=== PATIENT | female | born 1970 | race Caucasian/White ===

== ENCOUNTER → 2016-06-06 | Day surgery (SDC) | payer BC ==
[2016-06-06] VITALS (13 sets, daily range): BP systolic 126–160; BP diastolic 77–90
[~2016-06-06] VITALS: Ht 165.1 cm; Wt 57.6 kg
[~2016-06-06] MED LIST: Dexamethasone 4mg/ml vial ONE; Hydromorphone 0.5mg/0.5ml inj IVP PRN; Ketorolac 30mg Inj IV PRN; Meperidine 25mg/ml Inj ONE; Meperidine 50mg/ml Inj IVP ONE; NKM; NS Irrig 1000ml IRRIG ONE; Norco 5mg/325mg tab ORAL PRN; ProvayBlue 5mg/ml 10ml amp INJ ONE; Ropivacaine 5mg/ml Vial 20ml INJ ONE; Sterile Water Irrig 1000ml IRRIG ONE; Zemuron 50mg/5ml Inj IV ONE; cefOXitin 2gm Inj ONE; cefOXitin Sod 2 GM in D5W 110 ML IVPB ONE; fentaNYL 100 mcg/2 mL IV PRN
--- NOTE | 2016-06-06 07:58 | Pre-Procedure Note/Attestation ---
Pre-Procedure Note/Attestation Complete Prior to Procedure Planned Procedure: left Procedure Narrative: Video Pelviscopy, left pelvic cystic mass evaluation and removal, possible left salpingectomy, hysteroscopy D&C Indications for Procedure Pre-Operative Diagnosis: Left adnexal mass Attestation I attest that I discussed the nature of the procedure; its benefits; risks and complications; and alternatives (and the risks and benefits of such alternatives ), prior to the procedure, with the patient (or the patient's legal sales training representative). I attest that, if there was a reasonable possibility of needing a blood transfusion, the patient (or the patient's legal sales training representative) was given the [place] [employer] [facility] [employer] [facility] standardized written summary, pursuant to the [employer] Blood Safety Act ([place] Health and Safety Code # 1645, as amended). I attest that I re-evaluated the patient just prior to the surgery and that there has been no change in the patient's H&P, except as documented below:NONE REYMUNDO LOPEZ Jun 06, 2016 07:58
--- NOTE | 2016-06-06 09:01 | Anethesia Preoperative Eval ---
Anesthesia Pre-op PMH/ROS General Date of Evaluation: Jun 06, 2016 Time of Evaluation: 07:25 Anesthesiologist: Mony ASA Score: ASA 1 Mallampati Score Class I : Soft palate, uvula, fauces, pillars visible Class II: Soft palate, uvula, fauces visible Class III: Soft palate, base of uvula visible Class IV: Only hard plate visible Mallampati Classification: Class I Surgeon: Kaci Diagnosis: Ovarian Cyst Surgical Procedure: Laparascopy removal ovarian cyst Anesthesia History: none Family History: no anesthesia problems Allergies: Coded Allergies: Dairy (Verified Allergy, Intermediate, inflamatiom, 06/05/16) Medications: see eMAR Past Medical History Cardiovascular: Denies: CAD, HTN, [place], arrhythmia, other, valve dz Pulmonary: Denies: COPD, SALLY, asthma, other Gastrointestinal/Genitourinary: Denies: CRI, ESRD, GERD, other Neurologic/Psychiatric: Denies: CVA, TIA, dementia, depression/anxiety, other Endocrine: Denies: DM, hypothyroidism, other, steroids Hematology/Immune: Denies: DVT, anemia, bleeding disorder, other Musculoskeletal/Integumentary: Denies: DDD, DJD, OA, RA, edema, other Anesthesia Pre-op Phys. Exam Physician Exam Last Vital Signs Date Time Temp Pulse Resp B/P Pulse Ox O2 Delivery O2 Flow Rate FiO2 06/06/16 06:56 98.2 54 20 138/82 99 Room Air Constitutional: NAD Neurologic: CN 2-12 intact Cardiovascular: RRR Respiratory: CTA Gastrointestinal: S/NT/ND Airway Exam Mallampati Score: Class I Anesthesia Pre-op A/P Labs Urine Test Test 06/06/16 06:30 Urine HCG, Qualitative Negative FILEMON DELGADO M.D. Jun 06, 2016 09:01
--- NOTE | 2016-06-06 09:22 | Brief Operative Note ---
Immediate Post Operative Note Operative Note Pre-op Diagnosis: Left adnexal mass Procedure: D&C, Hysteroscopy, Pelviscopy with Left Salpingectomy, with enterolysis Post-op Diagnosis: Left tubal mass, Right bowel adhesions Post-op Diagnosis: same as pre-op plus - RIght bowel adhesions Surgeon: Reymundo Lopez MD Geographic Area Intelligence Officer: Rema Nina MD Anesthesiologist: Ghassan Gray MD Anesthesia: general Specimen: yes - ECC, EMC, Left Tube Complications: none Condition: stable Fluids: IV - Normal Saline Estimated Blood Loss: minimal Drains: none Implant(s) used?: No REYMUNDO LOPEZ Jun 06, 2016 09:22
--- NOTE | 2016-06-06 09:24 | Immediate Post-Op Evaluation ---
Immediate Post-Op Evalulation Immediate Post-Op Evalulation Procedure: Ovarian Custectomy Date of Evaluation: Jun 06, 2016 Time of Evaluation: 09:23 IV Fluids: 800 Blood Products: 0 Estimated Blood Loss: 0 Urinary Output: 0 Blood Pressure Systolic: 120 Blood Pressure Diastolic: 70 Pulse Rate: 80 Respiratory Rate: 20 O2 Sat by Pulse Oximetry: 99 Temperature (Fahrenheit): 9 8 Pain Score (1-10): 2 Nausea: No Vomiting: No Complications na Patient Status: awake Hydration Status: adequate Drug: Cefoxitin 2 G Given Within 1 Hr of Incision: Yes Time Given: 07:45 FILEMON DELGADO M.D. Jun 06, 2016 09:24
--- NOTE | 2016-06-06 09:25 | 48 Hour Post Anesthesia Eval ---
Post Anesthesia Evaluation Procedure: Ovarian Custectomy Date of Evaluation: Jun 06, 2016 Time of Evaluation: 09:25 Blood Pressure Systolic: 123 0: 70 Pulse Rate: 70 Respiratory Rate: 20 Temperature (Fahrenheit): 98 O2 Sat by Pulse Oximetry: 99 Airway: patent Nausea: No Vomiting: No Pain Intensity: 2 Hydration Status: adequate Cardiopulmonary Status: stable Mental Status/LOC: patient returned to baseline Follow-up Care/Observations: na Post-Anesthesia Complications: na Follow-up care needed: N/A FILEMON DELGADO M.D. Jun 06, 2016 09:25
--- NOTE | 2016-06-06 15:38 | Operative Note - Dictated ---
DATE OF OPERATION: 06/06/2016 PREOPERATIVE DIAGNOSIS: Left pelvic mass. POSTOPERATIVE DIAGNOSIS: Left tubal mass with bowel adhesions. PROCEDURE PERFORMED: Left salpingectomy, video pelviscopy with enterolysis, video hysteroscopy, endometrial curettage, endocervical curettage, and removal of IUD. SURGEON: Robi Clemons M.D. POSTAL CLERK: Rema Nina M.D. ANESTHESIA: General endotracheal. ANESTHESIOLOGIST: Ghassan Sykes M.D. PROCEDURE IN DETAIL: After all the appropriate consents were signed, the patient was brought to the operating room, placed on table in supine position. General endotracheal anesthesia was induced without complication. The patient was then placed in a dorsal lithotomy position. Perineum, vagina, and abdomen were prepped and draped in the usual fashion for the procedure. Lee catheter was placed in bladder. Procedure began with the vaginal portion of the procedure where the cervix was grasped, dilated, and hysteroscopy was performed. Hysteroscopy revealed a normal cavity. Both tubal ostia were visualized and were within normal limits. There did not appear to be any submucosal fibroids or polyps. At this time, uterine manipulator was placed and the procedure continued at its abdominal portion where an umbilical incision was made. Veress needle was introduced and the abdomen was insufflated to 15 mmHg. A 11 mm trocar was placed atraumatically and video hysteroscope was introduced. The pelvis was visualized and no collateral damage was identified. At this time, two additional trocars were placed in the left lower quadrant and in the midline. The procedure began by visualizing the pelvis. The uterus appeared to have a uterine fibroid in the posterior aspect of the fundus. The tube on the right side along with the ovaries were very small and elegant and within normal limits. The tube on the left side was severely dilated along its entire length and the ovary on the left side had a small cystic mass, which was probable ovulatory cyst. The procedure then continued with elevating of the left tube. The tube on the left side was dilated along its entire length. The procedure at this time continued with evaluation of the upper abdomen. The liver edge was within normal limits. On the right side, there were adhesions from the bowel to the right abdominal sidewall. The appendix was also visualized and was found to be within normal limits. Photographs were taken and the procedure now began with elevating of the left tube using traction and countertraction and using the bipolar device to coagulate and cut the tube away from its connection on the ovary and transect the tube at its insertion to the uterus. Once this was completed, the tube was completely removed away from the tube and the uterus, and then extracted through the umbilical incision. The procedure then continued with elevating the bowel along the right abdominal wall, and using traction and countertraction, a sharp dissection was undertaken of the adhesions to the right abdominal wall. When this was completed, the area was once again visualized. Complete hemostasis was noted. The bowel was also visualized and was found within normal limits with all the bowel serosa intact. At this time, once again, all the operative sites were fully visualized. The left side was completely hemostatic. The right-sided tubes and ovary were in perfect condition and they were within normal limits. The pelvis was then irrigated and the debris was suctioned. Instruments were now removed one after another under direct visualization with the laparoscope. The umbilical trocar was removed and the laparoscope was removed last. The procedure continued with the closure of the fascial layer using 0 Vicryl suture and covering the skin layer with Steri-Strips and benzoin. The patient was then placed in the supine position, awakened from general anesthesia. Her uterine manipulator and Lee were removed. She was transferred to the recovery room in excellent condition. Robi Clemons M.D. DR: DEBORAH JOB#: [id number] CC:
== END | disposition home or self-care (01) ==
LOC: SUR 06:16
DX: N70.11 Chronic salpingitis (principal); K66.0 Peritoneal adhesions (postprocedural) (postinfection); D25.9 Leiomyoma of uterus, unspecified
CPT/HCPCS: 58558; 58661; 81025; J0694; J1100; J1885; J2405; J2795; 94003; 94150; J2180